=== PATIENT | female | born 1990 | race African-American/Black ===

== ENCOUNTER 2024-03-23 16:11 | Inpatient (IN) ==
[2024-03-23] MEDS ORDERED: Nalbuphine 10 MG/ML 1 ML VIAL IM PRN (17:13)
[2024-03-23] MEDS ORDERED: Lidocaine 1% VIAL 10 MG/ML 30 ML VIAL INJ PRN (17:13)
[2024-03-23 18:41] LABS: ABS Eosinophils 0.1 10^3/uL (0.0-0.5); ABS Lymphocytes 2.1 10^3/uL (1.0-4.8); ABS Monocytes 0.6 10^3/uL (0.0-0.9); ABS Neutrophils 2.1 10^3/uL (1.5-7.6); ABS Nucleated RBC 0.01 10^3/ul; Hematocrit 40.9 % (35-45); Hemoglobin 13.9 g/dL (11.5-14.3); Mean Corpuscular Volume 85.3 fL (80-97); Mean Platelet Volume 9.6 fL (7.5-11.2); Nucleated Red Blood Cells % 0.1 %/100WBC (0.0-0.8); Platelet Count 194 10^3/uL (150-450); Red Blood Count 4.79 10^6/uL (3.63-4.92); Red Cell Distribution Width 14.5 % (12-17)
[2024-03-23 19:06] LABS: Urine Benzodiazepine Screen None Detected (None Detect); Urine Cannabinoids Screen None Detected (None Detect); Urine Opiates Screen None Detected (None Detect)
[2024-03-23 19:13] LABS: Albumin 3.3 g/dL (3.2-5.2); Albumin/Globulin Ratio 1.3 (1-3); Calcium 8.8 mg/dL (8.6-10.3); Creatinine, Serum 0.53 mg/dL (0.51-0.95); Globulin 2.6 g/dL (2-4); Potassium 4.2 mmol/L (3.5-5.0); Total Bilirubin 0.3 mg/dL (0.2-1.0); Total Protein 5.9 g/dL (6.4-8.9); eGFR CKD-EPI 124.4 (>60)
[2024-03-23] MEDS: Dinoprostone 10 MG VAG.SUPP VAGINAL ONE (20:04)
[2024-03-23 20:25] LABS: Urine Creatinine Concentration 29.95 mg/dL (20.00-320.00); Urine TP Creat Ratio 0.63 mg/mg
[2024-03-23] MEDS: Calcium Carb (TUMS) 500 mg CHEW TAB PO PRN (21:31)
[2024-03-24] MEDS: Prochlorperazine 5 mg/ml 2 ml VIAL (10 mg) IV PRN (05:36)
[2024-03-24] MEDS: Nalbuphine 10 MG/ML 1 ML VIAL IV PRN (05:43)
[2024-03-24 11:46] LABS: Hepatitis B Surface Antigen Nonreactive (Nonreactive)
[2024-03-24] MEDS: miSOPROStol 100 mcg TAB VAGINAL ONE (11:48)
[2024-03-24 12:04] LABS: Hepatitis C Antibody Negative (Negative)
[2024-03-24] MEDS: Lactated Ringers 1000 ml BAG 1,000 ML IV SCH (18:34)
[2024-03-24] MEDS: Lactated Ringers 1000 ml BAG 1,000 ML IV ONE (22:10)
[2024-03-24] MEDS: OBEPIDURAL (200 ML) 200 ML EPIDURAL ONE (22:37)
[2024-03-24] MEDS ORDERED: Phenylephrine 40 mcg/mL 10mL (400mcg) SYRINGE IV PUSH PRN ×2 (23:00)
[2024-03-25 00:15] LABS: Urine Appearance Clear; Urine Bilirubin Negative (Negative); Urine Blood 1+ (Negative); Urine Color Light-Yellow; Urine Glucose Negative (Negative); Urine Ketones 2+ (Negative); Urine Nitrite Negative (Negative); Urine Protein Trace (Negative); Urine Specific Gravity 1.011 (1.002-1.030); Urine Urobilinogen Negative (Negative); Urine pH 5.5 (5.0-8.0)
[2024-03-25 00:22] LABS: Urine Bacteria Absent /HPF (Absent); Urine Red Blood Cell 1+(3-5/hpf) /HPF (0-Trace); Urine Squamous Epithelial Cell Present /HPF (Absent); Urine White Blood Cell Absent /HPF (0-Trace)
[2024-03-25] MEDS: miSOPROStol 100 mcg TAB SCH (10:22)
[2024-03-25] MEDS: Lidocaine 1.5% EPI 1:200,000 30 ML SDV ONE (14:33)
[2024-03-25] MEDS: OBEPIDURAL (200 ML) 200 ML EPIDURAL SCH (14:33)
[2024-03-25] MEDS: Oxytocin in LR 20,000 MILLI.UNIT/1,000 ML BAG IV SCH (21:55)
[2024-03-25] MEDS: Lactated Ringers 1000 ml BAG 1,000 ML IV SCH (21:56)
[2024-03-26] MEDS ORDERED: Albuterol HFA INHALER 8 gm MDI INH PRN (09:10)
[2024-03-26 09:29] LABS: ABS Lymphocytes 1.4 10^3/uL (1.0-4.8); ABS Monocytes 0.7 10^3/uL (0.0-0.9); ABS Neutrophils 4.2 10^3/uL (1.5-7.6); Eosinophil % 0.6 %; Hematocrit 40.8 % (35-45); Lymphocyte % 22.2 %; Mean Corpuscular Hemoglobin 29.2 pg (27-33); Mean Corpuscular Hgb Conc 34.3 g/dL (31-36); Mean Platelet Volume 9.1 fL (7.5-11.2); Platelet Count 182 10^3/uL (150-450); Red Cell Distribution Width 14.5 % (12-17); White Blood Count 6.3 10^3/uL (3.8-11.8)
[2024-03-26 10:03] LABS: Albumin 3.1 g/dL (3.2-5.2); Albumin/Globulin Ratio 1.2 (1-3); Calcium 9.1 mg/dL (8.6-10.3); Creatinine, Serum 0.64 mg/dL (0.51-0.95); Globulin 2.5 g/dL (2-4); Total Bilirubin 0.6 mg/dL (0.2-1.0); Total Protein 5.6 g/dL (6.4-8.9); eGFR CKD-EPI 118.9 (>60)
[2024-03-26] MEDS ORDERED: Ondansetron 4 mg VIAL 2 MG/ML 2 ml VIAL IV PRN ×2 (14:04→20:24)
[2024-03-26] MEDS ORDERED: fentaNYL 100 mcg/2 ml 50 MCG/ML VIAL ONE (18:56)
[2024-03-26] MEDS ORDERED: Phenylephrine IV 10 MG/ML 1 ml VIAL ONE (18:56)
[2024-03-26] MEDS ORDERED: Lidocaine 2% w/ EPI 1:200,000 MPF 20 ML SDV VIAL ONE (18:57)
[2024-03-26] MEDS ORDERED: Metoclopramide 5 MG/ML VIAL (10 mg) ONE (18:58)
[2024-03-26] MEDS: Sodium Citrate/Citric Acid LIQ 15 ML UDC PO PRN (18:58)
[2024-03-26] MEDS ORDERED: Oxytocin 10 UNITS/ML 1 ML VIAL ONE ×2 (18:58→21:02)
[2024-03-26] MEDS: CEFOXITIN IVPB ONE (19:31)
[2024-03-26] MEDS: NS IVPB ONE (19:31)
[2024-03-26] MEDS ORDERED: Dexamethasone IV 4 MG/ML VIAL 1 ml VIAL ONE (20:12)
[2024-03-26] MEDS ORDERED: Morphine PF AMP (0.5MG/ML) 5 MG/10 ML AMP ONE (20:17)
[2024-03-26] MEDS ORDERED: Metoclopramide 5 MG/ML VIAL (10 mg) IV PRN (20:24)
[2024-03-26] MEDS ORDERED: Acetaminophen IV 1 GM/100ML 1,000 MG/100 ML BAG IV PRN (20:24)
[2024-03-26] MEDS ORDERED: Naloxone 0.4 mg VIAL 0.4 mg/ml 1 ml VIAL IV PUSH PRN (20:24)
[2024-03-26] MEDS ORDERED: Acetaminophen IV 1 GM/100ML 1,000 MG/100 ML BAG IV ONE (20:26)
[2024-03-26] MEDS ORDERED: Midazolam 2 mg/2 ml VIAL 1 mg/ml 2 ml VIAL (2 mg) ONE (20:45)
[2024-03-26] MEDS ORDERED: Lidocaine 2% PF 5 ML VIAL ONE (20:59)
[2024-03-26] MEDS ORDERED: Witch Hazel PAD JAR TOPICAL PRN (21:28)
[2024-03-26] MEDS ORDERED: Dibucaine 1% OINT 28.35 GM TUBE PR PRN (21:28)
[2024-03-26] MEDS ORDERED: Glycerin ADULT 2.4 gm SUPP PR PRN (21:28)
[2024-03-26] MEDS: Oxytocin in LR 20,000 MILLI.UNIT/1,000 ML BAG IV SCH (21:30)
[2024-03-26] MEDS ORDERED: Lactated Ringers 1000 ml BAG 1,000 ML IV SCH (22:00)
[2024-03-27 10:06] LABS: ABS Lymphocytes 1.7 10^3/uL (1.0-4.8); ABS Neutrophils 7.6 10^3/uL (1.5-7.6); ABS Nucleated RBC 0.01 10^3/ul; Eosinophil % 0.2 %; Hematocrit 34.7 % (35-45); Hemoglobin 11.7 g/dL (11.5-14.3); Lymphocyte % 16.1 %; Mean Corpuscular Hemoglobin 28.6 pg (27-33); Mean Corpuscular Hgb Conc 33.8 g/dL (31-36); Mean Corpuscular Volume 84.7 fL (80-97); Mean Platelet Volume 8.8 fL (7.5-11.2); Nucleated Red Blood Cells % 0.1 %/100WBC (0.0-0.8); Platelet Count 156 10^3/uL (150-450); Red Cell Distribution Width 14.4 % (12-17); White Blood Count 10.3 10^3/uL (3.8-11.8)
[2024-03-27] MEDS: Oxytocin in LR 20,000 MILLI.UNIT/1,000 ML BAG IV SCH (16:46)
[2024-03-27] MEDS: Buffered Lidocaine 1% SYRIN 1 ml INTRADERM ONE (16:46)
[2024-03-27] MEDS: Phenylephrine 40 mcg/mL 10mL (400mcg) SYRINGE ONE (20:37)
[2024-03-27] MEDS: Lactated Ringers 1000 ml BAG 1,000 ML IV ONE (20:38)
[2024-03-27] MEDS: Lidocaine 1.5% EPI 1:200,000 30 ML SDV ONE (20:39)
[2024-03-29 07:37] VITALS: BP 129/90
[2024-03-29] MEDS: Measles, Mumps,Rubella VACC 0.5 ML/VIAL SUBCUT ONE (11:31)
== END 2024-03-29 12:18 | disposition home or self-care (01) | DRG 540 ==
LOC: MCHOBOUT 16:11 → MCHOB 16:54
PROVIDERS: ADMIT Advanced Practice Midwife; ATTEND Obstetrics & Gynecology